=== PATIENT | female | born 1970 | race Caucasian/White ===

== ENCOUNTER 2019-08-08 07:28 | Emergency (ER) | payer BC, OTHER ==
[~2019-08-08] VITALS: Ht 175.3 cm; Wt 85.5 kg
[2019-08-08] MEDS ORDERED: NAPR-885 PO (07:35)
[2019-08-08] MEDS ORDERED: BACL10TA2 PO (07:35)
[2019-08-08] MEDS ORDERED: ACETAMINOPHEN 500 MG TAB PO ONE (08:15)
--- NOTE | 2019-08-08 08:47 | REP ---
Right lower extremity Duplex Doppler venous ultrasound: Real time compression and duplex Doppler interrogation of the right lower extremity deep venous system is performed. The right common femoral, superficial femoral and popliteal veins are fully compressible with transducer pressure and demonstrate normal spontaneous and phasic flow, without evidence of deep venous thrombosis. Impression: No evidence of deep venous thrombosis of the right lower extremity femoral popliteal venous system. Electronically Signed by Jean Resendez MD 08/08/2019 08:38 A
[2019-08-08] MEDS ORDERED: ONDANSETRON 4MG/2ML VIAL (J2405) IV ONE (09:00)
[2019-08-08] MEDS ORDERED: MORPHINE 2 MG/ML 1ML SYRINGE (J2270) IV ONE ×2 (09:00→10:30)
[2019-08-08 09:01] LABS: HEMATOCRIT 37.8 % (36.0-47.0); HEMOGLOBIN 12.6 g/dl (12.0-15.5); MEAN CORPUSCULAR HEMOGLOBIN 32.7 pg (27.0-33.0); MEAN CORPUSCULAR HGB CONC 33.3 g/dl (32.0-36.5); MEAN CORPUSCULAR VOLUME 98.2 fl (80.0-96.0); PLATELET COUNT, AUTOMATED 258 10^3/uL (150-450); RED BLOOD COUNT 3.85 10^6/uL (4.00-5.40); WHITE BLOOD COUNT 7.7 10^3/uL (4.0-10.0)
[2019-08-08 09:23] LABS: BLOOD UREA NITROGEN 16 MG/DL (7-18); CALCIUM LEVEL 8.9 MG/DL (8.5-10.1); CARBON DIOXIDE LEVEL 26 MEQ/L (21-32); CHLORIDE LEVEL 111 MEQ/L (98-107); CPK CREATINE PHOSPHOKINASE 171 U/L (26-192); CREATININE FOR GFR 0.85 MG/DL (0.55-1.30); GLOMERULAR FILTRATION RATE > 60.0 (>51); GLUCOSE, FASTING 104 MG/DL (70-100); MAGNESIUM LEVEL 1.8 MG/DL (1.8-2.4); POTASSIUM SERUM 4.5 MEQ/L (3.5-5.1); SODIUM LEVEL 142 MEQ/L (136-145)
[2019-08-08] MEDS ORDERED: CYCLOBENZAPRINE 10 MG TAB PO ONE (10:30)
[2019-08-08 11:55] VITALS: BP 122/68
[2019-08-24] MEDS ORDERED: GABA-845 PO (15:17)
[2019-08-24] MEDS ORDERED: PERC5TAB12 PO (15:17)
[2019-08-24] MEDS ORDERED: MELO7.5T35 PO (15:17)
[2019-08-24] MEDS ORDERED: META1TAB22 PO (15:17)
== END 2019-08-08 11:50 | disposition home or self-care (01) ==
LOC: M ED 07:28
DX: I83.91 Asymptomatic varicose veins of right lower extremity (principal); M54.5 Low back pain; Z79.899 Other long term (current) drug therapy; Z88.0 Allergy status to penicillin; F17.210 Nicotine dependence, cigarettes, uncomplicated
CPT/HCPCS: 80048; 82550; 83735; 85027; 93971; 96374; 96375; 96376; 99284; J2270; J2405

== ENCOUNTER 2019-08-25 10:20 | Day surgery (SDC) | payer BC, OTHER ==
[~2019-08-25] VITALS: Ht 175.3 cm; Wt 87.0 kg
[~2019-08-25 10:20] MED LIST: BACL10TA2 PO; CelecoXIB 400 MG CAP PO ONE; GABA-845 PO; GABAPENTIN 300 MG CAP PO ONE; LR 1,000 ML IV ONE; MELO7.5T35 PO; META1TAB22 PO; NAPR-885 PO; PERC5TAB12 PO; PERCOCET 5MG/325MG TAB PO ONE; VANCOMYCIN HCL 1,000 MG, VIAL MATE ADAPTER 1 EACH in D5W 250 ML IV ONE
[2019-08-25] MEDS ORDERED: VIAL MATE ADAPTER XX ONE (10:54)
[2019-08-25] MEDS ORDERED: LIDOCAINE 2% INJ 100 MG/5 ML SDV (FOR ANES.) As Ordered ONE (11:27)
[2019-08-25] MEDS ORDERED: ROCURONIUM BROMIDE 50 MG/5 ML VIAL As Ordered ONE ×2 (11:27→13:52)
[2019-08-25] MEDS ORDERED: PROPOFOL 200 MG/20 ML VIAL As Ordered ONE (11:27)
[2019-08-25] MEDS ORDERED: dexameTHASONE 4 MG/ML 1ML VIAL (J1100) As Ordered ONE (11:28)
[2019-08-25] MEDS ORDERED: fentaNYL 100 MCG/2 ML INJECTION (J3010) As Ordered ONE ×3 (11:28→15:57)
[2019-08-25] MEDS ORDERED: MIDAZOLAM INJ 2 MG/2 ML VIAL (J2250) As Ordered ONE (11:28)
[2019-08-25] MEDS ORDERED: ONDANSETRON 4MG/2ML VIAL (J2405) As Ordered ONE (11:28)
[2019-08-25] MEDS ORDERED: THROMBIN SOLN 20,000 UNITS KIT As Ordered ONE (12:35)
[2019-08-25] MEDS ORDERED: BACITRACIN PWD 50,000 UNITS VIAL As Ordered ONE (12:36)
[2019-08-25] MEDS ORDERED: TRANEXAMIC ACID 100 MG/ML 10ML VIAL As Ordered ONE (12:36)
[2019-08-25] MEDS ORDERED: BUPIVACAINE LIPOSOME/PF 1.3% 20ML VIAL (13.3MG/ML)(EXPAREL)(C9290 PER1MG) As Ordered ONE (12:36)
[2019-08-25] MEDS ORDERED: BUPIVACAINE HCL 0.25% 10 ML VIAL As Ordered ONE ×2 (12:36→13:37)
[2019-08-25] MEDS ORDERED: EPINEPHrine INJ 1 MG/ML 1ML AMP As Ordered ONE (12:36)
[2019-08-25] MEDS ORDERED: BUPIVACAINE/EPIN 0.5% 30 ML VIAL As Ordered ONE (12:36)
[2019-08-25] MEDS ORDERED: ACETAMINOPHEN 1000MG 100ML IV BTL (OFIRMEV) (J0131 PER 10MG) As Ordered ONE (14:04)
[2019-08-25] MEDS ORDERED: METOCLOPRAMIDE INJ 10MG/2ML VIAL (J2765) As Ordered ONE (14:04)
--- NOTE | 2019-08-25 14:29 | REP ---
Lumbar spine single lateral cross-table view: The tip of a metallic probe is projected over the posterior elements of the L5 vertebra. Electronically Signed by Jean Santizo MD 08/25/2019 02:21 P
[2019-08-25] MEDS ORDERED: SUGAMMADEX SODIUM 500 MG/5 ML VIAL (BRIDION) As Ordered ONE (14:32)
[2019-08-25] MEDS ORDERED: CYCLOBENZAPRINE 10 MG TAB PO PRN (15:45)
[2019-08-25] MEDS ORDERED: PROMETHAZINE INJ 25 MG/ML VIAL (J2550) IV PRN (15:45)
[2019-08-25] MEDS ORDERED: PERCOCET 5MG/325MG TAB PO PRN (15:45)
[2019-08-25] MEDS: LR 1,000 ML IV SCH (15:45)
[2019-08-25] MEDS ORDERED: ACETAMINOPHEN TAB 650MG DOSE (2X325MG) PO PRN (15:45)
[2019-08-25] MEDS: PERCOCET 5MG/325MG TAB PO PRN ×3 (15:58→21:31)
[2019-08-25] MEDS: fentaNYL 100 MCG/2 ML INJECTION (J3010) IV PRN ×2 (15:58→16:04)
[2019-08-25] MEDS ORDERED: HYDROMORPHONE HCL 0.5 MG/ 0.5 ML SYRINGE (J1170 PER 1) IV PRN (16:00)
[2019-08-25] MEDS ORDERED: LR 1,000 ML IV SCH (16:00)
[2019-08-25] MEDS ORDERED: ONDANSETRON 4MG/2ML VIAL (J2405) IV PRN (16:00)
[2019-08-25] MEDS ORDERED: ceFAZolin SOD 1 GM in D5W MINI-BAG PLUS 50 ML IV ONE (17:00)
[2019-08-25 17:15] VITALS: BP 109/68
[2019-08-25 18:03] VITALS: BP 109/69
[2019-08-25 19:00] VITALS: BP 109/68
[2019-08-25 20:00] VITALS: BP 103/60
[2019-08-25] MEDS: METAMUCIL (PSYLLIUM) PACKET PO SCH (20:52)
[2019-08-25 21:00] VITALS: BP 105/66
[2019-08-25 22:00] VITALS: BP_SYST 105; BP_SYST 108; BP_DIAS 61; BP_DIAS 66
[2019-08-26] MEDS: PERCOCET 5MG/325MG TAB PO PRN ×2 (01:38→08:13)
[2019-08-26] MEDS: LR 1,000 ML IV SCH (01:45)
[2019-08-26 02:00] VITALS: BP 110/57
[2019-08-26 06:00] VITALS: BP 103/65
[2019-08-26] MEDS ORDERED: PERC5TAB12 PO (07:18)
[2019-08-26] MEDS ORDERED: META0.52 PO (07:18)
[2019-08-26] MEDS: METAMUCIL (PSYLLIUM) PACKET PO SCH (08:11)
[2019-08-26] MEDS ORDERED: CelecoXIB 400 MG CAP PO ONE (09:00)
[2019-08-26 10:00] VITALS: BP 95/59
--- NOTE | 2019-08-29 10:15 | RO ---
DATE OF PROCEDURE: 08/25/2019 PREOPERATIVE DIAGNOSIS: Right-sided disc extrusion L5-S1. POSTOPERATIVE DIAGNOSIS: Right-sided disc extrusion L5-S1. PROCEDURE PERFORMED: Microdiscectomy right L5-S1 via laminotomy. SURGEON: Dr. Marlon Gardiner. MEN'S GOLF COACH: TAMY Peralta ANESTHESIA: General endotracheal. COMPLICATIONS: None. ESTIMATED BLOOD LOSS: Less than 50 mL replaced with crystalloid. INDICATIONS: Intractable discomfort radiating down the right lower extremity numbness, tingling and decreased reflex. MRI evidence of large disc extrusion L5-S1 on the right side. Next, consent reviewed in detail including verito discussion of the procedure proposed, alternatives including doing nothing and risks including not limited to pain, failure, infection, need for more surgery neurologic issues. The patient agreed to proceed. DESCRIPTION OF PROCEDURE: Identified in the holding area, site and side verified, brought to the operating room. Once anesthesia was administered, position for exposure of the lumbar spine in the prone position on the Marcell frame. Axillary rolls utilized, knees were slightly flexed. She was sterilely prepped and draped in the usual fashion. Next, once I and the geological specialist were comfortable with the patient's positioning, we began the surgical procedure. Time-out was accomplished. I stood on the patient's right, Mr. Banks on the left. Initially I used Loupe and headlamp and then exchanged for operating microscope. The incision was based on bony landmarks, infiltrated with 0.25% Marcaine with epinephrine and made with a 10 blade knife. It was developed down through skin subcuticular tissues to the posterior lumbar fascia. Posterior lumbar fascia was then reflected off the spinous process of L5. Dissection continued L5, expose L5 lamina. Divot drilled in L5 lamina. Goodman Dennis probe placed in the divot. Cross-table lateral x-ray taken to verify level. Once this was accomplished, we extended inferiorly exposing the top of the sacral lamina. Next, we placed the shadow line retractor 55 mm blade, retracted. I exchanged my Loupe and headlamp magnification for the sterilely draped microscope; we brought that in. Mr. Banks looked through oculars on the left, I on the right. This facilitated safe use the high-speed bur, which was used to implement right-sided laminotomy extending superiorly to the bare area of 5, inferiorly to the bare area of S1 and the medial aspect of the L5-S1 facet. We protected taking about 10% of the facet complex. Next, curets were utilized to elevate ligamentum flavum and it was removed using curets as well as pituitaries as well as #3 Kerrisons. Thecal sac was directly visualized. Thecal sac seemed to be elevated at the shoulder of the nerve root. We utilized a Goodman-Dennis to sweep the nerve root medially to expose the large disc extrusion. Mr. Banks utilized suction Sushil to help retract and then I used the Goodman- Dennis probe to break through the posterior longitudinal ligament and gain access to the disc material, which was removed using Griffith pituitaries and large pituitaries. I was also able to probe the interspace as the annulus had ruptured and removed friable disc material from their. The disc herniation was quite large and certainly displacing the traversing S1 nerve root. Decompressed the neural foramina as well. Inspected for bleeding. No active bleeding at conclusion of case. Bipolar cautery was used for hemostasis. Inspected for cerebrospinal fluid (CSF) leak and visualize no CSF leak. Irrigation was accomplished. Lumbar fascia reapproximated with interrupted stitch, Carl's fascia with interrupted stitch, deep dermis with interrupted stitch. Pernio dressing was applied. Next the patient was able to be then log-rolled to the hospital bed extubated, moved to the recovery room in good condition and moving all four extremities.
== END 2019-08-26 11:30 | disposition home or self-care (01) ==
LOC: M SDC 10:20 → M MS5PR 17:06 → M SDC 08-26 11:30
PROVIDERS: ATTEND Orthopaedic Surgery
DX: M51.26 Other intervertebral disc displacement, lumbar region (principal); F17.210 Nicotine dependence, cigarettes, uncomplicated; Z79.899 Other long term (current) drug therapy; Z88.0 Allergy status to penicillin
CPT/HCPCS: 36415; 63030; 72100; 86850; 86900; 86901; 88304; 96374; C9290; J0131; J0690; J1100; J2250; J2405; J2765; J3010; J3370

== ENCOUNTER → 2019-09-06 | Outpatient (CLI) | payer BC ==
[~2019-09-06] MED LIST changes: -CelecoXIB 400 MG CAP PO ONE; -GABAPENTIN 300 MG CAP PO ONE; -LR 1,000 ML IV ONE; +META0.52 PO; -PERCOCET 5MG/325MG TAB PO ONE; -VANCOMYCIN HCL 1,000 MG, VIAL MATE ADAPTER 1 EACH in D5W 250 ML IV ONE
--- NOTE | 2019-09-06 16:04 | REP ---
REASON: Bilateral thigh pain and swelling. TECHNIQUE: Multiple ultrasonographic images of the deep venous structures of the bilateral thighs were obtained from the common femoral vein to the popliteal vein along with Doppler interrogation and color flow Doppler images. FINDINGS: There is no abnormal echogenic material seen within any of the visualized deep venous structures that would suggest acute thrombosis. Coaptation is unremarkable throughout. Doppler interrogation shows an expected response to respiratory variability and augmentation. The color flow images show what appears to be a normal vascular pattern throughout. IMPRESSION: There is no ultrasonographic evidence of deep venous thrombosis involving any of the visualized deep venous structures of the bilateral thighs, as described above. Electronically Signed by Andi Crum DO 09/07/2019 10:43 A
== END ==
LOC: M RAD 14:37
PROVIDERS: ATTEND Orthopaedic Surgery
DX: Z47.89 Encounter for other orthopedic aftercare (principal)